=== PATIENT | male | born 1960 | race Two or more races ===

== ENCOUNTER 2019-06-15 04:42 | Emergency (ER) | payer OTHER ==
[~2019-06-15] VITALS: Ht 190.5 cm; Wt 101.2 kg
[~2019-06-15 04:42] MED LIST: ACT30 PO; AMLODIPINE-BENAZ; GLYBURIDE5 MG PO; K10 PO; LIPITOR40 MG PO; LOP50 PO; METFORMIN HCL750 MG PO; METFORMIN HYD1000 M1 PO; METOPROLOL SUC200 M2 PO; NOR10 PO; PRI20 PO; REGL PO; SALINE SOLUTION3 M1; ZES20 PO
[2019-06-15 04:47] VITALS: Ht 190.5 cm; Wt 101.2 kg
[2019-06-15 05:34] LABS: BILIRUBIN TOTAL 0.7 mg/dL (0.20-1.00); CALCIUM 8.2 mg/dL (8.5-10.1); CARBON DIOXIDE 28.7 mmol/L (21-32); CREATININE SERUM 2.4 mg/dL (0.7-1.3); POTASSIUM SERUM 3.8 mmol/L (3.5-5.1); TOTAL PROTEIN, SERUM 7.6 g/dL (6.4-8.2)
[2019-06-15 05:35] LABS: ALBUMIN 3.2 g/dL (3.4-5.0)
[2019-06-15 05:44] LABS: PLATELET COUNT 264 x10^3mcL (130-400); RED CELL DISTRIBUTION WIDTH 14.1 % (11.5-14.5)
[2019-06-15 05:45] LABS: BASOPHIL % 0 % (0-2)
[2019-06-15 07:31] VITALS: BP 150/101
== END 2019-06-15 07:31 | disposition home or self-care (01) ==
LOC: ED 04:42
PROVIDERS: Emergency Medicine
DX: E11.649 Type 2 diabetes mellitus with hypoglycemia without coma (principal); T38.3X1A Poisoning by insulin and oral hypoglycemic [antidiabetic] drugs, accidental (unintentional), initial encounter; I11.0 Hypertensive heart disease with heart failure; I50.9 Heart failure, unspecified; E78.00 Pure hypercholesterolemia, unspecified; Y92.89 Other specified places as the place of occurrence of the external cause
CPT/HCPCS: 36415; 82962; J2354; Q0092